=== PATIENT | male | born 1955 | race Caucasian/White ===

== ENCOUNTER 2016-09-14 06:54 | Emergency (ER) | payer SELFPAY ==
[2016-09-14] MEDS ORDERED: KETOROLAC TROMETHAMINE 60 MG/2 ML SDV IM ONE (07:51)
--- NOTE | 2016-09-14 07:58 | ER Document Report ---
HPI - HPI Pain Level: 5 Context: Patient with a h/o bipolar disorder comes to the office c/o LBP x1 weeks. Pt states that he does have chronic back pain usually. Denies any pain/numbness radiating to his LE's. Pt states that he has been out of his ativan and ambien that he was given by [facility] He does take depakote for his bipolar. Pt states that his anxiety has been elevated causing more issues controlling his back pain. He did take aleve which he states helps. Pt just wants something for the pain. He denies any acute injury, fever, CP, palp, syncope, sob, dyspnea, cough, abd pain, n/v/d, dysuria, hematuria, urinary retention, flank pain, loss of control of b/b, or rash. No smoking history. No family history of AAA. No h/o cardiac disease per patient. - ROS Notes: REVIEW OF SYSTEMS: CONSTITUTIONAL : Denies fever, chills, or sweats. Denies recent illness. EENT: Denies eye, ear, throat, or mouth pain or symptoms. Denies nasal or sinus congestion or discharge. Denies throat, tongue, or mouth swelling or difficulty swallowing. CARDIOVASCULAR: Denies chest pain. Denies palpitations or racing or irregular heart beat. Denies ankle edema. RESPIRATORY: Denies cough, cold, or chest congestion. Denies shortness of breath, difficulty breathing, or wheezing. GASTROINTESTINAL: Denies abdominal pain or distention. Denies nausea, vomiting , or diarrhea. Denies blood in vomitus, stools, or per rectum. Denies black, tarry stools. Denies constipation. GENITOURINARY: Denies difficulty urinating, painful urination, burning, frequency, blood in urine, or discharge. MUSCULOSKELETAL: see hpi. SKIN: Denies rash, lesions or sores. HEMATOLOGIC : Denies easy bruising or bleeding. LYMPHATIC: Denies swollen, enlarged glands. NEUROLOGICAL: Denies confusion or altered mental status. Denies passing out or loss of consciousness. Denies dizziness or lightheadedness. Denies headache. Denies weakness or paralysis or loss of use of either side. Denies problems with gait or speech. Denies sensory loss, numbness, or tingling. Denies seizures. PSYCHIATRIC: Denies anxiety or stress. Denies depression, suicidal ideation, or homicidal ideation. ALL OTHER SYSTEMS REVIEWED AND NEGATIVE. Dictation was performed using [employer] voice recognition software - DERM Skin Color: Normal Past Medical History - Social History Smoking Status: Never Smoker Family History: Reviewed & Not Pertinent Patient has suicidal ideation: No Patient has homicidal ideation: No Renal/ Medical History: Denies: Hx Peritoneal Dialysis Psychiatric Medical History: Reports: Hx Bipolar Disorder Vertical Provider Document - CONSTITUTIONAL Notes: PHYSICAL EXAMINATION: GENERAL: Well-appearing, well-nourished and in no acute distress. HEAD: Atraumatic, normocephalic. NECK: Normal range of motion, supple without lymphadenopathy LUNGS: Breath sounds clear to auscultation bilaterally and equal. No wheezes rales or rhonchi. HEART: Regular rate and rhythm without murmurs, rubs, gallops. ABDOMEN: Soft, nontender, nondistended abdomen. No guarding, no rebound. No masses appreciated. Normal bowel sounds present. No CVA tenderness bilaterally. Anal sphincter tone intact. Musculoskeletal: FROM to passive/active to back and LE's b/l, Strength 5+/5. + tenderness noted to the Paraspinal L2-3 R>L. Extremities: No cyanosis, clubbing, or edema b/l. Peripheral pulses 2+ and equal b/l. Capillary refill less than 3 seconds. NEUROLOGICAL: Cranial nerves grossly intact. Normal speech, normal gait. Normal sensory, motor exams. Reflexes to LE's b/l are 2+. PSYCH: Normal mood, anxious affect. SKIN: Warm, Dry, normal turgor, no rashes or lesions noted. - INFECTION CONTROL TRAVEL OUTSIDE OF THE [place] IN LAST 30 DAYS: No - RESPIRATORY O2 Sat by Pulse Oximetry: 98 Course - Re-evaluation Re-evalutation: Pt is a 61yo male who presents with acute on chronic back pain w/o any known injury. Vitals stable. PE unremarkable aside from mild rt paraspinal L-spine tenderness. No red flags on H&P. Toradol 60mg given IM today. Oxycodone 5mg given PO once today. L-spine XR negative. I will send him home with Naproxen 500mg PO BID prn pain. Recheck with PCM in 2-3 days. Consider ortho consult with ongoing/worsening symptoms. Needs recheck with PCM for elevated BP. After performing a Medical Screening Examination, I estimate there is LOW risk for EXPANDING OR RUPTURED ABDOMINAL AORTIC ANEURYSM, CAUDA EQUINA SYNDROME, EPIDURAL MASS LESION, or HERNIATED DISK CAUSING SEVERE SPINAL STENOSIS, thus I consider the discharge disposition reasonable. I have reevaluated this patient multiple times and no significant life threatening changes are noted. The patient and I have discussed the diagnosis and risks, and we agree with discharging home and close follow-up. We also discussed returning to the Emergency Department immediately if new or worsening symptoms occur with the understanding that symptoms and presentations can change. We have discussed the symptoms which are most concerning (e.g., saddle anesthesia, urinary or bowel incontinence or retention, changing or worsening pain) that necessitate immediate return. 09/14/16 09:12 - Vital Signs Vital signs: Temp Pulse Resp BP Pulse Ox 97.9 F 85 18 160/99 H 98 09/14/16 07:10 09/14/16 07:10 09/14/16 07:10 09/14/16 07:10 09/14/16 07:10 Discharge - Discharge Clinical Impression: Low back pain Qualifiers: Chronicity: chronic Back pain laterality: unspecified Sciatica presence: without sciatica Qualified Code(s): M54.5 - Low back pain Condition: Stable Disposition: HOME, SELF-CARE Instructions: Ice Packs ([facility]), Low Back Pain ([facility]), Warm Packs ([facility]) Additional Instructions: Rest, Ice, Compression, Elevation Tylenol/ibuprofen as needed Light stretches daily Strength exercises as able Moist heat and massage may help F/u with your PCP in 2-3 days for a recheck Consider consult(s) with Orthopedics for ongoing/worsening symptoms Return to the ED with any worsening pain, swelling, numbness/tingling, muscle weakness, or development of fever. Forms: Elevated Blood Pressure Referrals: [facility] [Provider Group] - Follow up as needed
--- NOTE | 2016-09-14 09:00 | RADIOLOGY REPORT (SQ) ---
EXAM DESCRIPTION: L SPINE WHOLE COMPLETED DATE/TIME: 09/14/2016 8:48 am REASON FOR STUDY: Low back pain COMPARISON: None. NUMBER OF VIEWS: Five views including obliques. TECHNIQUE: AP, lateral, oblique, and sacral radiographic images acquired of the lumbar spine. LIMITATIONS: None. FINDINGS: MINERALIZATION: Normal. SEGMENTATION: Normal. No transitional anatomy. ALIGNMENT: Normal. VERTEBRAE: Maintained height. No fracture or worrisome bone lesion. DISCS: Multilevel disc space narrowing with osteophytes. POSTERIOR ELEMENTS: Pedicles and facets are intact. No pars defect or posterior arch defects. Facet arthropathy is present. HARDWARE: None in the spine. PARASPINAL SOFT TISSUES: Normal. PELVIS: Intact as visualized. No fractures or worrisome bone lesions. SI joints intact. OTHER: No other significant finding. IMPRESSION: SPONDYLOSIS WITHOUT BONE LESION OR FRACTURE. TECHNICAL DOCUMENTATION: JOB ID: [id number] [employer]- All Rights Reserved
[2016-09-14] MEDS ORDERED: OXYCODONE HCL IR 5 MG TABLET PO ONE (09:11)
[2016-09-14 10:07] VITALS: BP 164/82
== END 2016-09-14 10:07 | disposition home or self-care (01) ==
LOC: ER 06:54
DX: M54.5 Low back pain (principal); G89.29 Other chronic pain; F31.9 Bipolar disorder, unspecified; I10 Essential (primary) hypertension; Z79.899 Other long term (current) drug therapy
CPT/HCPCS: 99283; 72110; J1885

== ENCOUNTER 2016-09-14 16:18 | Emergency (ER) | payer SELFPAY ==
--- NOTE | 2016-09-14 16:49 | ER Document Report ---
ED Medical Screen (RME) - General Chief Complaint: Psych Problem Stated Complaint: BACK PAIN Time Seen by Provider: 09/14/16 16:41 Notes: Patient is complaining of extreme pain in his lower lumbar back region that he says has been there off and on for the past week or so. He says he was seen here in this emergency department this morning and had x-rays and was discharged with N Sayed. That is not relieving his pain so he has returned. He says he wants to stay in the hospital. Says he is afraid he might shoot himself because he is in such pain. Patient has been on lorazepam and Ambien and ran out of both of them about a week ago and thinks that is part of the reason that he is having the severe pain. He has a history of bipolar disorder for which he is taking Depakote. No other significant medical history. TRAVEL OUTSIDE OF THE [place] IN LAST 30 DAYS: No - Related Data Allergies/Adverse Reactions: No Known Allergies Allergy (Verified 09/14/16 16:21) Past Medical History Renal/ Medical History: Denies: Hx Peritoneal Dialysis Psychiatric Medical History: Reports: Hx Bipolar Disorder Physical Exam - Vital signs Vitals: Temp Pulse Resp BP Pulse Ox 98.1 F 86 14 181/96 H 96 09/14/16 16:21 09/14/16 16:21 09/14/16 16:21 09/14/16 16:21 09/14/16 16:21 Course - Vital Signs Vital signs: Temp Pulse Resp BP Pulse Ox 98.1 F 86 14 181/96 H 96 09/14/16 16:21 09/14/16 16:21 09/14/16 16:21 09/14/16 16:21 09/14/16 16:21
[2016-09-14 17:13] LABS: ABSOLUTE BASOPHILS # (AUTO) 0.1 10^3/uL (0.0-0.2); ABSOLUTE LYMPHOCYTES (AUTO) 1.4 10^3/uL (0.5-4.7); ABSOLUTE MONOCYTES (AUTO) 0.9 10^3/uL (0.1-1.4); ABSOLUTE NEUT (AUTO) 7.2 10^3/uL (1.7-8.2); BASOPHILS % (AUTO) 0.6 % (0-2); EOSINOPHILS % (AUTO) 0.1 % (0-6); HEMATOCRIT 46.9 % (37.9-51.0); HEMOGLOBIN 15.6 g/dL (13.5-17.0); HGB HCT DIFFERENCE -0.1; LYMPHOCYTES % (AUTO) 14.4 % (13-45); MEAN CORPUSCULAR HEMOGLOBIN 30.7 pg (27.0-33.4); MEAN CORPUSCULAR HGB CONC 33.2 g/dL (32.0-36.0); MEAN CORPUSCULAR VOLUME 93 fl (80-97); MONOCYTES % (AUTO) 9.4 % (3-13); RED BLOOD COUNT 5.07 10^6/uL (4.35-5.55); RED CELL DISTRIBUTION WIDTH 13.7 % (11.5-14.0); SEGMENTED NEUTROPHILS % (AUTO) 75.5 % (42-78); WHITE BLOOD COUNT 9.6 10^3/uL (4.0-10.5)
[2016-09-14 17:32] LABS: ALANINE AMINOTRANSFERASE 19 U/L (21-72); ALBUMIN 4.4 g/dL (3.5-5.0); ALKALINE PHOSPHATASE 83 U/L (38-126); ANION GAP 15 (5-19); ASPARTATE AMINO TRANSFERASE 16 U/L (17-59); BILIRUBIN,DIRECT 0.6 mg/dL (0.0-0.4); BLOOD UREA NITROGEN 14 mg/dL (7-20); CALCIUM 9.8 mg/dL (8.4-10.2); CARBON DIOXIDE 26 mmol/L (22-30); CHLORIDE 100 mmol/L (98-107); CREATININE RESULT 0.74 mg/dL (0.52-1.25); GLUCOSE 101 mg/dL (75-110); SODIUM 141.2 mmol/L (137-145); TOTAL PROTEIN 7.8 g/dL (6.3-8.2)
[2016-09-14 17:33] LABS: ALCOHOL < 10 mg/dL (NONE DETECTED); POTASSIUM 4.7 mmol/L (3.6-5.0)
--- NOTE | 2016-09-14 18:44 | ER Document Report ---
ED General - General Mode of Arrival: Ambulatory Information source: Patient TRAVEL OUTSIDE OF THE [place] IN LAST 30 DAYS: No - HPI Onset: Other - Refer to HPI notes Similar symptoms previously: No Recently seen / treated by doctor: No <NIC LYNN - Last Filed: 09/14/16 20:47> <ONEALSARAH SARAH - Last Filed: 09/15/16 01:08> - General Chief Complaint: Psych Problem Stated Complaint: BACK PAIN Time Seen by Provider: 09/14/16 16:41 Notes: Patient is a 61 year old male presenting to the emergency department for back pain. Patient states he is out of his Ambien and Lorazepam and his physician will not prescribe him anymore. Patient is still getting the Depakote prescription. Patient has been out of these medications for 1-2 weeks. Patient was evaluated earlier in the emergency department for his back pain and given prescriptions for Naprosyn. Patient denies any suicidal or homicidal ideation and denies any plan to hurt himself. Patient also has a tremor which he states was onset this week has been getting worse over the last few days. (NIC LYNN) - Related Data Allergies/Adverse Reactions: No Known Allergies Allergy (Verified 09/14/16 16:21) Past Medical History - General Information source: Patient - Social History Smoking Status: Never Smoker Cigarette use (# per day): No Chew tobacco use (# tins/day): No Frequency of alcohol use: None Drug Abuse: None Family History: None Patient has suicidal ideation: Yes Patient has homicidal ideation: No Psychiatric Medical History: Reports: Hx Anxiety, Hx Bipolar Disorder, Hx Depression Surgical Hx: Negative <NIC LYNN - Last Filed: 09/14/16 20:47> Review of Systems - Review of Systems Constitutional: No symptoms reported EENT: No symptoms reported Cardiovascular: No symptoms reported Respiratory: No symptoms reported Gastrointestinal: No symptoms reported Genitourinary: No symptoms reported Male Genitourinary: No symptoms reported Musculoskeletal: See HPI Skin: No symptoms reported Hematologic/Lymphatic: No symptoms reported Neurological/Psychological: See HPI -: Yes All other systems reviewed and negative <NIC LYNN - Last Filed: 09/14/16 20:47> Physical Exam <NIC LYNN - Last Filed: 09/14/16 20:47> - Vital signs Interpretation: Normal - General General appearance: Appears well, Alert - HEENT Head: Normocephalic, Atraumatic Eyes: Normal Pupils: PERRL - Respiratory Respiratory status: No respiratory distress Chest status: Nontender Breath sounds: Normal Chest palpation: Normal - Cardiovascular Rhythm: Regular Heart sounds: Normal auscultation Murmur: No - Abdominal Inspection: Normal Distension: No distension Bowel sounds: Normal Tenderness: Nontender Organomegaly: No organomegaly - Back Back: Normal, Tender - paraspinal L1-5 b/l - Extremities General upper extremity: Normal inspection, Nontender, Normal color, Normal ROM , Normal temperature General lower extremity: Normal inspection, Nontender, Normal color, Normal ROM , Normal temperature, Normal weight bearing. No: Natty's sign - Neurological Neuro grossly intact: Yes Cognition: Normal Orientation: AAOx4 [place] Coma Scale Eye Opening: Spontaneous [place] Coma Scale Verbal: Oriented [place] Coma Scale Motor: Obeys Commands [place] Coma Scale Total: 15 Speech: Normal Motor strength normal: LUE, RUE, LLE, RLE Sensory: Normal Biceps - Reflex grade: 3 = Increased Triceps - Reflex grade: 3 = Increased Brachioradialis - Reflex grade: 3 = Increased Knee - Reflex grade: 3 = Increased Ankle - Reflex grade: 3 = Increased - Psychological Associated symptoms: Normal affect, Anxious - Skin Skin Temperature: Warm Skin Moisture: Dry Skin Color: Normal <SARAH NO - Last Filed: 09/15/16 01:08> - Vital signs Vitals: Temp Pulse Resp BP Pulse Ox 98.1 F 86 14 181/96 H 96 09/14/16 16:21 09/14/16 16:21 09/14/16 16:21 09/14/16 16:21 09/14/16 16:21 - Neurological Notes: tremulousness (SRAAH NO) Course - Laboratory Result Diagrams: 09/14/16 17:00 09/14/16 17:00 <NIC LYNN - Last Filed: 09/14/16 20:47> - Laboratory Result Diagrams: 09/14/16 17:00 09/14/16 17:00 <SARAH NO - Last Filed: 09/15/16 01:08> - Re-evaluation Re-evalutation: 09/14/16 22:24 Patient is a 61-year-old male who comes in complaining about back pain. Patient states that he was given medications for back pain in the past, as well as lorazepam and Ambien, but his doctor will not prescribe it anymore. Patient states that the back pain is making him very anxious and he states that he might hurt himself because of the pain. Patient states that he would not hurt himself and is not currently suicidal or homicidal. Of note, the patient is noted to have full body tremulousness. Patient states that this started about a week ago when he ran out of his lorazepam and it is gotten worse over the last 2 days. Patient is at risk for benzodiazepine withdrawal and potential seizures. Patient has been given a dose of Klonopin. He is feeling much better at this time. He is instructed to go to behavioral health services in [place] tomorrow to try to wean himself down on the Klonopin so that he does not have a seizure. Understands and agrees with plan. Stable for discharge. (SARAH NO) - Vital Signs Vital signs: Temp Pulse Resp BP Pulse Ox 97.7 F 77 20 161/81 H 98 09/14/16 22:00 09/14/16 22:00 09/14/16 22:00 09/14/16 22:00 09/14/16 22:00 - Laboratory Laboratory results interpreted by me: 09/14/16 17:00 Direct Bilirubin 0.6 H AST 16 L ALT 19 L Salicylates < 1.0 L Discharge <NIC LYNN - Last Filed: 09/14/16 20:47> <SARAH NO - Last Filed: 09/15/16 01:08> - Discharge Clinical Impression: Chronic back pain Qualifiers: Back pain location: low back pain Back pain laterality: bilateral Sciatica presence: without sciatica Qualified Code(s): M54.5 - Low back pain; G89.29 - Other chronic pain Benzodiazepine withdrawal Qualifiers: Complication of substance-induced condition: uncomplicated Qualified Code(s): F13.230 - Sedative, hypnotic or anxiolytic dependence with withdrawal, uncomplicated Condition: Stable Disposition: HOME, SELF-CARE Instructions: Benzodiazepines ([facility]), Low Back Pain ([facility]) Prescriptions: Clonazepam [Klonopin] 0.5 mg PO BIDP PRN #14 tablet PRN Reason: Cyclobenzaprine HCl [Flexeril 10 Mg Tablet] 10 mg PO BIDP PRN #20 tablet PRN Reason: Referrals: [facility] [Provider Group] - Follow up as needed [facility] [Provider Group] - Follow up as needed Scribe Attestation: 09/15/16 01:04 I personally performed the services described in the documentation, reviewed and edited the documentation which was dictated to the scribe in my presence, and it accurately records my words and actions. (SARAH NO) Scribe Documentation - Scribe Written by Scribe:: Mino Salgado, 09/14/16 20:55 acting as scribe for :: Oneal <NIC LYNN - Last Filed: 09/14/16 20:47>
[2016-09-14] MEDS ORDERED: CLONAZEPAM 1 MG TABLET PO ONE (19:03)
[2016-09-14 22:10] VITALS: BP 161/81
--- NOTE | 2016-09-16 00:15 | EKG REPORT ---
SEVERITY:- BORDERLINE ECG - SINUS RHYTHM VENTRICULAR PREMATURE COMPLEX BORDERLINE LEFT AXIS DEVIATION BORDERLINE PROLONGED QT INTERVAL : Confirmed by: Dhiraj Menendez 16-Sep-2016 00:13:52
== END 2016-09-14 22:03 | disposition home or self-care (01) ==
LOC: ER 16:18
DX: F13.230 Sedative, hypnotic or anxiolytic dependence with withdrawal, uncomplicated (principal); G25.2 Other specified forms of tremor; T42.4X5A Adverse effect of benzodiazepines, initial encounter; G89.29 Other chronic pain; M54.5 Low back pain; F41.9 Anxiety disorder, unspecified; F31.9 Bipolar disorder, unspecified; Z79.899 Other long term (current) drug therapy
CPT/HCPCS: 36415; 80053; 80164; 80307; 85025; 93005; 93010; 99284

== ENCOUNTER 2016-10-03 15:26 | Emergency (ER) | payer SELFPAY ==
[2016-10-03] MEDS ORDERED: NORMAL SALINE 1000 ML 1,000 ML IV PRN (16:14)
[2016-10-03 17:14] LABS: ABSOLUTE BASOPHILS # (AUTO) 0.1 10^3/uL (0.0-0.2); ABSOLUTE LYMPHOCYTES (AUTO) 1.3 10^3/uL (0.5-4.7); ABSOLUTE MONOCYTES (AUTO) 1.6 10^3/uL (0.1-1.4); ABSOLUTE NEUT (AUTO) 7.7 10^3/uL (1.7-8.2); BASOPHILS % (AUTO) 0.6 % (0-2); EOSINOPHILS % (AUTO) 0.2 % (0-6); HEMATOCRIT 44.3 % (37.9-51.0); HEMOGLOBIN 14.4 g/dL (13.5-17.0); HGB HCT DIFFERENCE -1.1; LYMPHOCYTES % (AUTO) 12.3 % (13-45); MEAN CORPUSCULAR HEMOGLOBIN 30.5 pg (27.0-33.4); MEAN CORPUSCULAR HGB CONC 32.5 g/dL (32.0-36.0); MEAN CORPUSCULAR VOLUME 94 fl (80-97); MONOCYTES % (AUTO) 14.9 % (3-13); RED BLOOD COUNT 4.74 10^6/uL (4.35-5.55); RED CELL DISTRIBUTION WIDTH 13.8 % (11.5-14.0); WHITE BLOOD COUNT 10.8 10^3/uL (4.0-10.5)
[2016-10-03 17:25] LABS: ANION GAP 15 (5-19); BLOOD UREA NITROGEN 24 mg/dL (7-20); CALCIUM 9.5 mg/dL (8.4-10.2); CARBON DIOXIDE 26 mmol/L (22-30); CHLORIDE 99 mmol/L (98-107); CREATININE RESULT 0.74 mg/dL (0.52-1.25); GLUCOSE 98 mg/dL (75-110); SODIUM 139.5 mmol/L (137-145)
[2016-10-03 17:30] LABS: VALPROIC ACID 89.9 ug/mL (50.0-120.0)
[2016-10-03 19:07] LABS: APPEARANCE,URINE CLEAR; BILIRUBIN,URINE NEGATIVE (NEGATIVE); GLUCOSE, URINE NEGATIVE (NEGATIVE); KETONES,URINE 80 mg/dL (NEGATIVE); LEUKOCYTE ESTERASE,URINE NEGATIVE (NEGATIVE); NITRITE,URINE NEGATIVE (NEGATIVE); PROTEIN,URINE 30 mg/dL (NEGATIVE); URINE SPECIFIC GRAVITY 1.026
[2016-10-03 19:29] LABS: URINE BARBITURATES SCREEN NEGATIVE; URINE METHADONE SCREEN NEGATIVE; URINE OPIATES LOW NEGATIVE; URINE PHENCYCLIDINE SCREEN NEGATIVE
--- NOTE | 2016-10-03 20:11 | ER Document Report ---
ED General - General Chief Complaint: Urinary Problem Stated Complaint: URINARY PROBLEM Time Seen by Provider: 10/03/16 15:36 TRAVEL OUTSIDE OF THE [place] IN LAST 30 DAYS: No - HPI Patient complains to provider of: Difficulty urinating Notes: Coming in for evaluation of difficulty urinating. Patient is unable to urinate this morning. Patient states has not been drinking or eating as he should. Patient otherwise states he had been taking medication as prescribed. Denies any fever chills nausea vomiting burning with urination. Denies any diarrhea - Related Data Allergies/Adverse Reactions: No Known Allergies Allergy (Verified 09/14/16 16:21) Past Medical History - Social History Smoking Status: Never Smoker Chew tobacco use (# tins/day): No Frequency of alcohol use: None Drug Abuse: None Family History: None Patient has suicidal ideation: No Patient has homicidal ideation: No Renal/ Medical History: Denies: Hx Peritoneal Dialysis Psychiatric Medical History: Reports: Hx Anxiety, Hx Bipolar Disorder, Hx Depression Review of Systems - Review of Systems Constitutional: No symptoms reported EENT: No symptoms reported Cardiovascular: No symptoms reported Respiratory: No symptoms reported Gastrointestinal: No symptoms reported Genitourinary: Retention Male Genitourinary: No symptoms reported Musculoskeletal: No symptoms reported Skin: No symptoms reported Hematologic/Lymphatic: No symptoms reported Neurological/Psychological: No symptoms reported -: Yes All other systems reviewed and negative Physical Exam - Vital signs Vitals: Temp Pulse BP Pulse Ox 98.1 F 99 168/88 H 100 10/03/16 15:41 10/03/16 15:41 10/03/16 15:41 10/03/16 15:41 Interpretation: Normal - General General appearance: Appears well, Alert - HEENT Head: Normocephalic, Atraumatic Eyes: Normal Pupils: PERRL - Respiratory Respiratory status: No respiratory distress Chest status: Nontender Breath sounds: Normal Chest palpation: Normal - Cardiovascular Rhythm: Regular Heart sounds: Normal auscultation Murmur: No - Abdominal Inspection: Normal Distension: No distension Bowel sounds: Normal Tenderness: Nontender Organomegaly: No organomegaly - Back Back: Normal, Nontender - Extremities General upper extremity: Normal inspection, Nontender, Normal color, Normal ROM , Normal temperature General lower extremity: Normal inspection, Nontender, Normal color, Normal ROM , Normal temperature, Normal weight bearing. No: Natty's sign - Neurological Neuro grossly intact: Yes Cognition: Normal Orientation: AAOx4 [place] Coma Scale Eye Opening: Spontaneous Margaret Coma Scale Verbal: Oriented Margaret Coma Scale Motor: Obeys Commands [place] Coma Scale Total: 15 Speech: Normal Motor strength normal: LUE, RUE, LLE, RLE Sensory: Normal - Psychological Associated symptoms: Normal affect, Normal mood - Skin Skin Temperature: Warm Skin Moisture: Dry Skin Color: Normal Course - Re-evaluation Re-evalutation: 10/03/16 20:10 Not reveal any critical pathology separately or dehydration. Patient was able tolerate a meal and p.o. meds here. Patient was able to also urinate on his own after a straight cath. Patient will be discharged home patient was encouraged to drink plenty of fluids - Vital Signs Vital signs: Temp Pulse Resp BP Pulse Ox 98.1 F 99 14 168/88 H 100 10/03/16 15:59 10/03/16 15:59 10/03/16 16:08 10/03/16 15:59 10/03/16 15:59 - Laboratory Result Diagrams: 10/03/16 16:50 10/03/16 16:50 Laboratory results interpreted by me: 10/03/16 10/03/16 10/03/16 16:50 16:50 18:35 WBC 10.8 H Lymphocytes % 12.3 L Monocytes % 14.9 H Absolute Monocytes 1.6 H BUN 24 H Urine Protein 30 H Urine Ketones 80 H Urine Blood SMALL H Urine Urobilinogen 2.0 H Discharge - Discharge Clinical Impression: Dehydration Condition: Good Disposition: HOME, SELF-CARE Instructions: Dehydration ([facility]) Additional Instructions: Please make sure that she drink plenty of water to stay hydrated.
[2016-10-03 20:18] VITALS: BP 162/89
== END 2016-10-03 20:17 | disposition home or self-care (01) ==
LOC: EEVIPCON 15:26 → ER 15:26
DX: E86.0 Dehydration (principal)
CPT/HCPCS: 99283; 96360; 36415; 85025; 80048; 81001; 80164; 80307; J7030

== ENCOUNTER 2016-10-04 16:17 | Emergency (ER) | payer SELFPAY ==
[2016-10-04] MEDS ORDERED: NORMAL SALINE 1000 ML 1,000 ML IV ONE (16:44)
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
[2016-10-04 17:24] LABS: ABSOLUTE EOSINOPHILS # (AUTO) 0.1 10^3/uL (0.0-0.6); ABSOLUTE LYMPHOCYTES (AUTO) 1.4 10^3/uL (0.5-4.7); ABSOLUTE MONOCYTES (AUTO) 1.2 10^3/uL (0.1-1.4); ABSOLUTE NEUT (AUTO) 5.3 10^3/uL (1.7-8.2); BASOPHILS % (AUTO) 0.6 % (0-2); EOSINOPHILS % (AUTO) 1.4 % (0-6); HEMATOCRIT 41.1 % (37.9-51.0); HEMOGLOBIN 13.4 g/dL (13.5-17.0); HGB HCT DIFFERENCE -0.9; LYMPHOCYTES % (AUTO) 17.2 % (13-45); MEAN CORPUSCULAR HEMOGLOBIN 30.3 pg (27.0-33.4); MEAN CORPUSCULAR HGB CONC 32.6 g/dL (32.0-36.0); MEAN CORPUSCULAR VOLUME 93 fl (80-97); MONOCYTES % (AUTO) 14.9 % (3-13); RED BLOOD COUNT 4.42 10^6/uL (4.35-5.55); RED CELL DISTRIBUTION WIDTH 14.2 % (11.5-14.0); SEGMENTED NEUTROPHILS % (AUTO) 65.9 % (42-78)
[2016-10-04 17:29] LABS: PROTHROMBIN TIME 13.1 SEC (11.4-15.4)
--- NOTE | 2016-10-04 17:42 | RADIOLOGY REPORT (SQ) ---
EXAM DESCRIPTION: CHEST SINGLE VIEW COMPLETED DATE/TIME: 10/04/2016 5:36 pm REASON FOR STUDY: altered mental status COMPARISON: None. EXAM PARAMETERS: NUMBER OF VIEWS: One view. TECHNIQUE: Single frontal radiographic view of the chest acquired. RADIATION DOSE: NA LIMITATIONS: None. FINDINGS: LUNGS AND PLEURA: No opacities, masses or pneumothorax. No pleural effusion. MEDIASTINUM AND HILAR STRUCTURES: No masses. Contour normal. HEART AND VASCULAR STRUCTURES: Heart normal in size. Normal vasculature. BONES: No acute findings. HARDWARE: None in the chest. OTHER: No other significant finding. IMPRESSION: NO ACUTE RADIOGRAPHIC FINDING IN THE CHEST. TECHNICAL DOCUMENTATION: JOB ID: [id number]
[2016-10-04 17:43] LABS: ALANINE AMINOTRANSFERASE 24 U/L (21-72); ALBUMIN 3.8 g/dL (3.5-5.0); ALKALINE PHOSPHATASE 58 U/L (38-126); ANION GAP 11 (5-19); ASPARTATE AMINO TRANSFERASE 49 U/L (17-59); BILIRUBIN,DIRECT 0.4 mg/dL (0.0-0.4); BLOOD UREA NITROGEN 18 mg/dL (7-20); CALCIUM 8.9 mg/dL (8.4-10.2); CARBON DIOXIDE 27 mmol/L (22-30); CHLORIDE 100 mmol/L (98-107); CREATININE RESULT 0.64 mg/dL (0.52-1.25); GLUCOSE 105 mg/dL (75-110); POTASSIUM 3.7 mmol/L (3.6-5.0); SODIUM 138.1 mmol/L (137-145); TOTAL PROTEIN 6.5 g/dL (6.3-8.2)
[2016-10-04 17:45] LABS: ALCOHOL < 10 mg/dL (NONE DETECTED)
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
[2016-10-04 18:32] LABS: VENOUS BLOOD BASE EXCESS 1.1 mmol/L; VENOUS BLOOD HCO3 25.5 mmol/L (20-32); VENOUS BLOOD PCO2 39.9 mmHg (35-63); VENOUS BLOOD PH 7.42 (7.30-7.42)
--- NOTE | 2016-10-04 19:49 | RADIOLOGY REPORT (SQ) ---
EXAM DESCRIPTION: CT HEAD WITHOUT COMPLETED DATE/TIME: 10/04/2016 7:34 pm REASON FOR STUDY: altered mental status COMPARISON: None. TECHNIQUE: Axial images acquired through the brain without intravenous contrast. Images reviewed wi th bone, brain and subdural windows. Images stored on PACS. All CT scanners at this facility use dose modulation, iterative reconstruction, and/or weight based d osing when appropriate to reduce radiation dose to as low as reasonably achievable (ALARA). [facility]: Dose Right [facility]: CareDose [facility]: Dose Right [facility]: Teradose 4D [facility]: Smart Sling Media RADIATION DOSE: Up-to-date CT equipment and radiation dose reduction techniques were employed. CTDIv ol: 64.6 mGy. DLP: 1163 mGy-cm. mGy. LIMITATIONS: None. FINDINGS: VENTRICLES: Normal size and contour. CEREBRUM: No masses. No hemorrhage. No midline shift. Normal jimenez/white matter differentiation. N o evidence for acute infarction. CEREBELLUM: No masses. No hemorrhage. No alteration of density. No evidence for acute infarction. EXTRAAXIAL SPACES: No fluid collections. No masses. ORBITS AND GLOBE: No intra- or extraconal masses. Normal contour of globe without masses. CALVARIUM: No fracture. PARANASAL SINUSES: No fluid or mucosal thickening. SOFT TISSUES: No mass or hematoma. OTHER: No other significant finding. IMPRESSION: NORMAL BRAIN CT WITHOUT CONTRAST. TECHNICAL DOCUMENTATION: JOB ID: [id number] Quality ID # [id number]: Final reports with documentation of one or more dose reduction techniques (e.g., Au tomated exposure control, adjustment of the mA and/or kV according to patient size, use of iterative reconstruction technique) 2010 [employer]- All Rights Reserved
[2016-10-04] MEDS ORDERED: LORAZEPAM INJ 2 MG/1 ML VIAL IM ONE ×2 (19:56→23:20)
[2016-10-04 20:20] LABS: APPEARANCE,URINE SLIGHTLY-CLOUDY; BILIRUBIN,URINE NEGATIVE (NEGATIVE); GLUCOSE, URINE NEGATIVE (NEGATIVE); KETONES,URINE 80 mg/dL (NEGATIVE); LEUKOCYTE ESTERASE,URINE NEGATIVE (NEGATIVE); NITRITE,URINE NEGATIVE (NEGATIVE); PROTEIN,URINE NEGATIVE (NEGATIVE); URINE SPECIFIC GRAVITY 1.021
[2016-10-04 20:33] LABS: URINE BARBITURATES SCREEN NEGATIVE; URINE METHADONE SCREEN NEGATIVE; URINE OPIATES LOW NEGATIVE; URINE PHENCYCLIDINE SCREEN NEGATIVE
[2016-10-04] MEDS ORDERED: NORMAL SALINE 1000 ML 1,000 ML IV PRN (21:32)
--- NOTE | 2016-10-04 22:20 | EKG REPORT ---
SEVERITY:- ABNORMAL ECG - SINUS RHYTHM VENTRICULAR PREMATURE COMPLEX BORDERLINE LEFT AXIS DEVIATION PROLONGED QT INTERVAL : Confirmed by: Dhiraj Menendez 04-Oct-2016 22:20:17
[2016-10-05] MEDS ORDERED: LORAZEPAM INJ 2 MG/1 ML VIAL IM ONE (00:56)
[2016-10-05 01:55] VITALS: BP 154/84
== END 2016-10-05 01:57 | disposition short-term general hospital (02) ==
LOC: ER 16:17
DX: R41.82 Altered mental status, unspecified (principal); R33.9 Retention of urine, unspecified; G89.29 Other chronic pain; M54.5 Low back pain; F31.9 Bipolar disorder, unspecified
CPT/HCPCS: 93005; 99285; 96372; 96360; 36415; 87040; 87086; 82962; 80307 ×4; 85025; 85652; 85610; 86140; 80053; 81001; 80164; 82803; 83605; 71010; 70450; 93010; J2060 ×2; J7030

== ENCOUNTER 2017-01-12 21:29 | Observation (INO) | payer SELFPAY ==
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
[2017-01-12 23:15] LABS: ALCOHOL < 10 mg/dL (NONE DETECTED); ANION GAP 11 (5-19); BLOOD UREA NITROGEN 15 mg/dL (7-20); CALCIUM 9.3 mg/dL (8.4-10.2); CARBON DIOXIDE 23 mmol/L (22-30); CHLORIDE 110 mmol/L (98-107); CREATININE RESULT 0.64 mg/dL (0.52-1.25); GLUCOSE 84 mg/dL (75-110); POTASSIUM 4.1 mmol/L (3.6-5.0); SODIUM 144.2 mmol/L (137-145)
[2017-01-12 23:30] LABS: ABSOLUTE BASOPHILS # (AUTO) 0.1 10^3/uL (0.0-0.2); ABSOLUTE EOSINOPHILS # (AUTO) 0.3 10^3/uL (0.0-0.6); ABSOLUTE LYMPHOCYTES (AUTO) 3.6 10^3/uL (0.5-4.7); ABSOLUTE NEUT (AUTO) 5.8 10^3/uL (1.7-8.2); BASOPHILS % (AUTO) 1.1 % (0-2); EOSINOPHILS % (AUTO) 2.4 % (0-6); HEMOGLOBIN 14.3 g/dL (13.5-17.0); HGB HCT DIFFERENCE -0.1; LYMPHOCYTES % (AUTO) 33.4 % (13-45); MEAN CORPUSCULAR HEMOGLOBIN 31.1 pg (27.0-33.4); MEAN CORPUSCULAR HGB CONC 33.2 g/dL (32.0-36.0); MEAN CORPUSCULAR VOLUME 94 fl (80-97); MONOCYTES % (AUTO) 9.5 % (3-13); RED BLOOD COUNT 4.59 10^6/uL (4.35-5.55); RED CELL DISTRIBUTION WIDTH 15.3 % (11.5-14.0); SEGMENTED NEUTROPHILS % (AUTO) 53.6 % (42-78); WHITE BLOOD COUNT 10.8 10^3/uL (4.0-10.5)
[2017-01-12 23:47] LABS: APPEARANCE,URINE CLEAR; BILIRUBIN,URINE NEGATIVE (NEGATIVE); GLUCOSE, URINE NEGATIVE (NEGATIVE); KETONES,URINE TRACE mg/dL (NEGATIVE); LEUKOCYTE ESTERASE,URINE NEGATIVE (NEGATIVE); NITRITE,URINE NEGATIVE (NEGATIVE); PROTEIN,URINE NEGATIVE (NEGATIVE); URINE SPECIFIC GRAVITY 1.024; UROBILINOGEN,URINE NEGATIVE mg/dL (<2.0)
[2017-01-13 00:08] LABS: URINE BARBITURATES SCREEN NEGATIVE; URINE METHADONE SCREEN NEGATIVE; URINE OPIATES LOW NEGATIVE; URINE PHENCYCLIDINE SCREEN NEGATIVE
--- NOTE | 2017-01-13 08:09 | EKG REPORT ---
SEVERITY:- ABNORMAL ECG - SINUS RHYTHM MULTIFORM VENTRICULAR PREMATURE COMPLEXES BORDERLINE LEFT AXIS DEVIATION : Confirmed by: Wild Hamilton MD 13-Jan-2017 08:09:10
--- NOTE | 2017-01-13 09:46 | ER Document Report ---
Doctor's Note Notes: 01/13/17 09:44 Patient has been seen and evaluated resting comfortably no acute distress. Laboratory values previous provider note and vital signs have been evaluated. Patient otherwise looks to be stable for disposition/transfer.
--- NOTE | 2017-01-13 10:11 | RADIOLOGY REPORT (SQ) ---
EXAM DESCRIPTION: CT HEAD WITHOUT COMPLETED DATE/TIME: 01/13/2017 10:01 am REASON FOR STUDY: ams COMPARISON: None. TECHNIQUE: Axial images acquired through the brain without intravenous contrast. Images reviewed wi th bone, brain and subdural windows. Images stored on PACS. All CT scanners at this facility use dose modulation, iterative reconstruction, and/or weight based d osing when appropriate to reduce radiation dose to as low as reasonably achievable (ALARA). [facility]: Dose Right [facility]: CareDose [facility]: Dose Right [facility]: Teradose 4D [facility]: Jajah RADIATION DOSE: Up-to-date CT equipment and radiation dose reduction techniques were employed. CTDIv ol: 64.6 mGy. DLP: 1292 mGy-cm. mGy. LIMITATIONS: None. FINDINGS: VENTRICLES: Normal size and contour. CEREBRUM: No masses. No hemorrhage. No midline shift. No evidence for acute infarction. Normal gra y/white matter differentiation. No areas of low density in the white matter. CEREBELLUM: No masses. No hemorrhage. No alteration of density. No evidence for acute infarction. EXTRAAXIAL SPACES: No fluid collections. No masses. ORBITS AND GLOBE: No intra- or extraconal masses. Normal contour of globe without masses. CALVARIUM: No fracture. PARANASAL SINUSES: No fluid or mucosal thickening. SOFT TISSUES: No mass or hematoma. OTHER: No other significant finding. IMPRESSION: NORMAL BRAIN CT WITHOUT CONTRAST. EVIDENCE OF ACUTE STROKE: NO. COMMENT: Quality ID # [id number]: Final reports with documentation of one or more dose reduction techniques (e.g., Automated exposure control, adjustment of the mA and/or kV according to patient size, use of iterative reconstruction technique) TECHNICAL DOCUMENTATION: JOB ID: [id number] [employer]- All Rights Reserved
[2017-01-13] MEDS ORDERED: DIVALPROEX SODIUM 500 MG TAB.SR.24H PO ONE (12:29)
[2017-01-13] MEDS ORDERED: LACTULOSE SYRUP 20 GM/30 ML UDCUP PO ONE (13:11)
[2017-01-13] MEDS ORDERED: ACETAMINOPHEN 325 MG TABLET PO PRN (15:09)
[2017-01-13 15:49] LABS: ADD ON TESTING BLD IN LAB ACKNOWLEDGE
[2017-01-13 16:31] LABS: ALANINE AMINOTRANSFERASE 13 U/L (21-72); ALBUMIN 4.1 g/dL (3.5-5.0); ALKALINE PHOSPHATASE 56 U/L (38-126); ASPARTATE AMINO TRANSFERASE 11 U/L (17-59); BILIRUBIN,DIRECT 0.4 mg/dL (0.0-0.4); BILIRUBIN,TOTAL 0.5 mg/dL (0.2-1.3); TOTAL PROTEIN 6.6 g/dL (6.3-8.2)
[2017-01-13 17:02] LABS: PROTHROMBIN TIME 13.3 SEC (11.4-15.4)
[2017-01-13] MEDS: LORAZEPAM 0.5 MG TABLET PO PRN (17:44)
--- NOTE | 2017-01-13 18:08 | PDOC H&P ---
History of Present Illness Admission Date/PCP: 01/13/17 13:52 Patient complains of: Fatigue, confusion, and depression History of Present Illness: ANA MARIA GRIGGS is a 61 year old male who presented to the ED via EMS for report of altered mental status. The patient was found driving erratically through a parking lot and pulled over by police academy instructor who then noted that the patient was not speaking clearly. He states that he remembers these events. He states that he took his Ambien at about 11pm approximately an hour later decided to try to get something to eat. He reports that he has been on his current dose of Ambien 10 mg nightly for several years and has not had difficulty in the past with sleep activity. He reports that he also took prescribed Ativan yesterday, however, states that he "took 1 or 2 more than I should have." He is additionally prescribed Depakote ER for his bipolar; he denies having taken additional doses of Depakote. He additionally denies EtOH or recreational drug use. He does report increased depression symptoms with anxiety related to being unemployed and not having health insurance. He describes having a poor social support system locally and is worried about becoming homeless. He is followed by a local psychiatrist and recently underwent ECT at [facility]. He reports that his depression improved initially following the treatments, however he has felt hopeless over the last several weeks. He denies SI, HI. Currently he continues to feel a sensation of "fogginess," and "confused easily. " He denies fever, chills, GOODWIN, dizziness, chest pain, dyspnea, abd pain, n/v/d. He does endorse an unintentional 40 lb wt loss over the last 2-3 months. Past Medical History Cardiac Medical History: Reports: None Pulmonary Medical History: Reports: None EENT Medical History: Reports: None Neurological Medical History: Reports: None Endocrine Medical History: Reports: None Renal/ Medical History: Reports: None Malignancy Medical History: Reports: None GI Medical History: Reports: None Denies: Hepatitis Musculoskeltal Medical History: Reports: None Skin Medical History: Reports: None Psychiatric Medical History: Reports: Bipolar Disorder, Depression, General Anxiety Disorder Denies: Alcohol Dependency, Substance Abuse, Tobacco Dependency Traumatic Medical History: Reports: None Hematology: Reports: None Infectious Medical History: Reports: None Past Surgical History Past Surgical History: Reports: None Social History Information Source: Patient Lives with: Alone Smoking Status: Never Smoker Frequency of Alcohol Use: None Hx Recreational Drug Use: No Hx Prescription Drug Abuse: No - Advance Directive Resuscitation Status: Full Code Family History Family History: None Parental Family History Reviewed: Yes - None significant Children Family History Reviewed: No Sibling(s) Family History Reviewed.: Unknown Medication/Allergy Home Medications: Divalproex Sodium [Depakote Er 500 Mg Tab.Sr] 500 mg PO Q12 #30 tab.sr.24h 02/24 Lorazepam [Ativan 1 mg Tablet] 1 mg PO Q8 01/13/17 Zolpidem Tartrate [Ambien] 10 mg PO QHS 01/13/17 Allergies/Adverse Reactions: No Known Allergies Allergy (Verified 01/12/17 21:43) Review of Systems All systems: reviewed and no additional remarkable complaints except as stated Constitutional: PRESENT: weight loss. ABSENT: chills, fever(s), headache(s), weight gain Eyes: ABSENT: visual disturbances Ears: ABSENT: hearing changes Cardiovascular: ABSENT: chest pain, dyspnea on exertion, edema, orthropnea, palpitations Respiratory: ABSENT: cough, hemoptysis Gastrointestinal: ABSENT: abdominal pain, constipation, diarrhea, hematemesis, hematochezia, nausea, vomiting Genitourinary: ABSENT: dysuria, hematuria Musculoskeletal: ABSENT: joint swelling Integumentary: ABSENT: rash, wounds Neurological: ABSENT: abnormal gait, abnormal speech, confusion, dizziness, focal weakness, syncope Psychiatric: PRESENT: as per HPI, anxiety, depression. ABSENT: homidical ideation, suicidal ideation Endocrine: ABSENT: cold intolerance, heat intolerance, polydipsia, polyuria Hematologic/Lymphatic: ABSENT: easy bleeding, easy bruising Physical Exam Vital Signs: Temp Pulse Resp BP Pulse Ox 98.1 F 62 16 157/92 H 99 01/13/17 16:15 01/13/17 16:15 01/13/17 16:15 01/13/17 16:15 01/13/17 16:15 General appearance: PRESENT: no acute distress, well-developed, well-nourished Head exam: PRESENT: atraumatic, normocephalic Eye exam: PRESENT: conjunctiva pink, EOMI, PERRLA. ABSENT: scleral icterus Ear exam: PRESENT: normal external ear exam Mouth exam: PRESENT: moist, tongue midline Neck exam: PRESENT: full ROM. ABSENT: carotid bruit, JVD, lymphadenopathy, tenderness, thyromegaly Respiratory exam: PRESENT: clear to auscultation agnieszka, symmetrical, unlabored. ABSENT: rales, rhonchi, wheezes Cardiovascular exam: PRESENT: RRR. ABSENT: diastolic murmur, rubs, systolic murmur Pulses: PRESENT: normal dorsalis pedis pul Vascular exam: PRESENT: normal capillary refill GI/Abdominal exam: PRESENT: normal bowel sounds, soft. ABSENT: distended, guarding, mass, organolmegaly, rebound, tenderness Rectal exam: PRESENT: deferred Extremities exam: PRESENT: full ROM. ABSENT: calf tenderness, clubbing, pedal edema Neurological exam: PRESENT: alert, awake, oriented to person, oriented to place , oriented to time, oriented to situation, CN II-XII grossly intact. ABSENT: motor sensory deficit Psychiatric exam: PRESENT: appropriate affect, depressed, flat affect. ABSENT: homicidal ideation, suicidal ideation Skin exam: PRESENT: dry, intact, warm. ABSENT: cyanosis, rash Results Laboratory Results: 01/13/17 01/13/17 15:38 16:35 Total Bilirubin 0.5 AST 11 L ALT 13 L Alkaline Phosphatase 56 Total Protein 6.6 Albumin 4.1 TSH 1.13 Impressions: Head CT 01/13/17 09:48 IMPRESSION: NORMAL BRAIN CT WITHOUT CONTRAST. EVIDENCE OF ACUTE STROKE: NO. Assessment & Plan - Diagnosis (1) Altered mental state Qualifiers: Altered mental status type: disorientation Qualified Code(s): R41.0 - Disorientation, unspecified Is this a current diagnosis for this admission?: Yes Plan: Patient with history of bipolar; prescribed depakote, ativan, and Ambien per psychiatry. He does admit to taking Ambien prior to driving/EMS response, as well as, ativan earlier in the day. AMS may be r/t side effect of ambien ( complex sleep-related behavior) and polypharmacy. Additionally, pts ammonia level is elevated, raising concern for hepatotoxicity r/t Depakote. 1- Obtain LFT, PT/INR; if normal, will continue Depakote as pt has had numerous other treatment failures 2- Hold Ambien 3- Reduced Ativan dosing (2) Increased ammonia level Plan: Likely r/t Depakote. Will hold until LFT panel resutls. 1- LFT, PT/INR 2- Will assess for hepatitis to r/o additional causes of hepatotoxicity 3- Lactulose q6 hrs (3) Depressed Qualifiers: Depression Type: major depressive disorder Major depression recurrence: recurrent Active/Remission status: currently active Major depression episode severity: moderate Qualified Code(s): F33.1 - Major depressive disorder, recurrent, moderate Is this a current diagnosis for this admission?: Yes Plan: Will continue Depakote for treatment resistant Bipolar w/ Depression once LFTs are available. 1- Consider adjunctive antidepressant therapy; choice limited 2/2 health insurance/cost 2- Consider psychiatric consultation 3- Appreciate Patient Navigator/Discharge Planning assistance (4) Benzodiazepine misuse Is this a current diagnosis for this admission?: Yes Plan: Pt prescribed ativan 1 mg q8 prn anxiety by outpatient psychiatry. Pt admits to frequently taking more than is prescribed. Will continue ativan, though at lower dose. 1- Ativan 0.5 mg po Q8 hr prn 2- Monitor for s/sx of withdrawal - Time Time Spent: 50 to 70 Minutes Medications reviewed and adjusted accordingly: Yes Anticipated discharge: Home
[2017-01-13] MEDS: FAMOTIDINE 20 MG TABLET PO SCH (21:10)
[2017-01-14 06:40] LABS: HEMOGLOBIN 14.4 g/dL (13.5-17.0); HGB HCT DIFFERENCE 0.2; MEAN CORPUSCULAR HEMOGLOBIN 31.1 pg (27.0-33.4); MEAN CORPUSCULAR HGB CONC 33.6 g/dL (32.0-36.0); MEAN CORPUSCULAR VOLUME 93 fl (80-97); RED BLOOD COUNT 4.64 10^6/uL (4.35-5.55); RED CELL DISTRIBUTION WIDTH 15.1 % (11.5-14.0); WHITE BLOOD COUNT 6.9 10^3/uL (4.0-10.5)
[2017-01-14 06:51] LABS: ANION GAP 13 (5-19); BLOOD UREA NITROGEN 12 mg/dL (7-20); CALCIUM 9.5 mg/dL (8.4-10.2); CARBON DIOXIDE 26 mmol/L (22-30); CHLORIDE 105 mmol/L (98-107); CREATININE RESULT 0.58 mg/dL (0.52-1.25); GLUCOSE 93 mg/dL (75-110); POTASSIUM 3.5 mmol/L (3.6-5.0); SODIUM 143.9 mmol/L (137-145)
[2017-01-14] MEDS ORDERED: BISACODYL 5 MG TABEC PO ONE (10:00)
[2017-01-14] MEDS: DIVALPROEX SODIUM 500 MG TAB.SR.24H PO SCH ×2 (10:10→22:27)
[2017-01-14] MEDS: DOCUSATE SODIUM 100 MG CAPSULE PO SCH (10:10)
[2017-01-14] MEDS: FAMOTIDINE 20 MG TABLET PO SCH ×2 (10:10→22:27)
[2017-01-14] MEDS: LORAZEPAM 0.5 MG TABLET PO PRN (10:13)
--- NOTE | 2017-01-14 14:24 | PDOC PROGRESS REPORT ---
Subjective Progress Note for:: 01/14/17 Subjective:: Patient is seen sitting up on the edge of his bed today. He is just met with a person from [facility] to assist with application to Medicaid for financial assistance. He dates that he is very appreciative of this help as he believes that much of his mental confusion is related to frustration, stress, anxiety regarding his financial situation. He asks to "meet with anybody you think can help me." He reports that he moved to the area a little over a year ago and in that time has spent close to $150,000 on "girls and booze." He states that he stopped drinking alcohol approximately 6 months ago when he recognized that he was quickly running out of money. He states that he is very anxious and depressed about his current situation as he anticipates becoming homeless within the next month. He does recognize that he may need to consider alternative living arrangements such as living with friends or family, group homes, or assisted living. He asks to speak with a social science teacher to discuss what options may be available to him. He does report continued confusion, stating that he feels easily overwhelmed by complex tasks. He states that he has noted that he has been having difficulty with finances (paying bills in addition to his exuberant spending) and has become lost while driving in town on at least 2 separate occasions. He states that he slept well last night, approximately 6 hours, despite having not received Ambien and being on lower dose Ativan. He denies psychomotor agitation, tremor, diaphoresis, nausea. Additionally, he complains of constipation today and requests a laxative. He reports that he frequently requires Dulcolax OTC at home. He denies abdominal pain, nausea, diarrhea. ROS as above and otherwise negative. Physical Exam Vital Signs: Temp Pulse Resp BP Pulse Ox 98.4 F 78 17 152/93 H 99 01/14/17 11:12 01/14/17 11:12 01/14/17 11:12 01/14/17 11:12 01/14/17 11:12 Intake & Output 01/13/17 01/14/17 01/15/17 06:59 06:59 06:59 Intake Total 245 Output Total 240 Balance 5 Weight 80.7 kg General appearance: PRESENT: no acute distress, thin, well-developed, well- nourished Head exam: PRESENT: atraumatic, normocephalic Eye exam: PRESENT: conjunctiva pink, EOMI, PERRLA. ABSENT: scleral icterus Ear exam: PRESENT: normal external ear exam Mouth exam: PRESENT: moist, tongue midline Neck exam: ABSENT: carotid bruit, JVD, lymphadenopathy, thyromegaly Respiratory exam: PRESENT: clear to auscultation agnieszka, symmetrical, unlabored. ABSENT: rales, rhonchi, wheezes Cardiovascular exam: PRESENT: RRR. ABSENT: diastolic murmur, rubs, systolic murmur Pulses: PRESENT: normal dorsalis pedis pul Vascular exam: PRESENT: normal capillary refill GI/Abdominal exam: PRESENT: normal bowel sounds, soft. ABSENT: distended, guarding, mass, organolmegaly, rebound, tenderness Rectal exam: PRESENT: deferred Extremities exam: PRESENT: full ROM. ABSENT: calf tenderness, clubbing, pedal edema Neurological exam: PRESENT: alert, awake, oriented to person, oriented to place , oriented to time, oriented to situation, CN II-XII grossly intact. ABSENT: motor sensory deficit Psychiatric exam: PRESENT: anxious, appropriate affect, depressed. ABSENT: homicidal ideation, suicidal ideation Focused psych exam: PRESENT: restlessness Skin exam: PRESENT: dry, intact, warm. ABSENT: cyanosis, rash Results Laboratory Results: 01/14/17 06:29 01/14/17 06:29 01/13/17 01/13/17 01/14/17 15:38 16:35 06:29 WBC 6.9 RBC 4.64 Hgb 14.4 Hct 43.0 MCV 93 MCH 31.1 MCHC 33.6 RDW 15.1 H Plt Count 196 Sodium Potassium Chloride Carbon Dioxide Anion Gap BUN Creatinine Est GFR ( Amer) Est GFR (Non-Af Amer) Glucose Calcium Total Bilirubin 0.5 AST 11 L ALT 13 L Alkaline Phosphatase 56 Total Protein 6.6 Albumin 4.1 TSH 1.13 01/14/17 06:29 WBC RBC Hgb Hct MCV MCH MCHC RDW Plt Count Sodium 143.9 Potassium 3.5 L Chloride 105 Carbon Dioxide 26 Anion Gap 13 BUN 12 Creatinine 0.58 Est GFR ( Amer) > 60 Est GFR (Non-Af Amer) > 60 Glucose 93 Calcium 9.5 Total Bilirubin AST ALT Alkaline Phosphatase Total Protein Albumin TSH Impressions: Head CT 01/13/17 09:48 IMPRESSION: NORMAL BRAIN CT WITHOUT CONTRAST. EVIDENCE OF ACUTE STROKE: NO. Assessment & Plan - Diagnosis (1) Altered mental state Qualifiers: Altered mental status type: disorientation Qualified Code(s): R41.0 - Disorientation, unspecified Is this a current diagnosis for this admission?: Yes Plan: Improved. Patient with history of bipolar; prescribed depakote, ativan, and Ambien per outpatient psychiatry. He does admit to taking Ambien prior to driving/EMS response, as well as, ativan earlier in the day. AMS may be r/t side effect of ambien (complex sleep-related behavior) and polypharmacy. I believe that his altered mental status is a combination of severe depression, his baseline bipolar disorder, polypharmacy, and especially Ambien use. His thoughts are more detailed and organized today. Despite his ammonia level being elevated, his remaining LFT panel was essentially normal and I am concerning. His hyperammonemia is likely a side effect of the Depakote and of itself does not necessitate discontinuing this medication as he has had multiple treatment failures and moderate success with Depakote use. 1- Resume Depakote 2- Hold Ambien; slept well overnight despite holding Ambien. 3- Reduced Ativan dosing (2) Increased ammonia level Plan: Likely r/t Depakote. Plan as above. 1- Will assess for hepatitis to r/o additional causes of hepatotoxicity; labs pending, unlikely given LFTs are not elevated. 2- Continue Lactulose q8 hrs (3) Depressed Qualifiers: Depression Type: major depressive disorder Major depression recurrence: recurrent Active/Remission status: currently active Major depression episode severity: moderate Qualified Code(s): F33.1 - Major depressive disorder, recurrent, moderate Is this a current diagnosis for this admission?: Yes Plan: Will continue Depakote for treatment resistant Bipolar w/ Depression. Remains on IVC papers. 1- Appreciate psychiatric consultation 2- Consider adjunctive antidepressant therapy; choice limited 2/2 health insurance/cost 3- Appreciate Patient Navigator/Discharge Planning assistance (4) Benzodiazepine misuse Is this a current diagnosis for this admission?: Yes Plan: Pt prescribed ativan 1 mg q8 prn anxiety by outpatient psychiatry. Pt admits to frequently taking more than is prescribed. Will continue ativan, though at lower dose. 1- Ativan 0.5 mg po Q8 hr prn 2- Monitor for s/sx of withdrawal (5) Hypertension Qualifiers: Hypertension type: unspecified Qualified Code(s): I10 - Essential (primary ) hypertension Is this a current diagnosis for this admission?: Yes Plan: May be r/t decreased BZO/potential withdrawal. No acute s/sx of withdrawal at present, will continue to monitor closely. 1- Will start on low dose Lisinopril - Time Time Spent with patient: 35 or more minutes Medications reviewed and adjusted accordingly: Yes
[2017-01-14] MEDS: LACTULOSE SYRUP 20 GM/30 ML UDCUP PO SCH (22:27)
[2017-01-15] MEDS: LACTULOSE SYRUP 20 GM/30 ML UDCUP PO SCH (05:16)
[2017-01-15] MEDS ORDERED: LISINOPRIL 5 MG TABLET PO SCH (10:00)
[2017-01-15] MEDS: DIVALPROEX SODIUM 500 MG TAB.SR.24H PO SCH (10:27)
[2017-01-15] MEDS: FAMOTIDINE 20 MG TABLET PO SCH (10:27)
[2017-01-15] MEDS: DOCUSATE SODIUM 100 MG CAPSULE PO SCH (10:29)
--- NOTE | 2017-01-15 11:15 | PSYCHOLOGICAL NOTE ---
Psych Note - Psych Note Psych Note: Attending emergency department physician Dr. Monge informed behavior health team clinician Raisa Brush that psychiatric evaluation was not necessary and will be canceled. Dr. Monge rescinded patient's IVC paperwork on 2016.
[2017-01-15 12:23] VITALS: BP 124/76
--- NOTE | 2017-01-15 12:30 | PDOC DISCHARGE SUMMARY ---
General - Admit/Disc Date/PCP Admission Date/Primary Care Provider: 01/13/17 15:09 Discharge Date: 01/15/17 - Discharge Diagnosis (1) Altered mental state Is this a current diagnosis for this admission?: Yes (2) Depressed Is this a current diagnosis for this admission?: Yes Summary: Pt described symptoms of depression; difficulty sleeping, poor appetite, feelings of hopelessness. He states that he feels this may be contributing to his recent confusion. Pt with long standing, treatment resistent, Bipolar. Currently on Depakote. Has previously had ECT x 2 with some improvements in sx. Discussed importance of psychiatry follow up after discharge. (3) Benzodiazepine misuse Is this a current diagnosis for this admission?: Yes Summary: Pt reported that he regularly takes 2-3 times the prescribed dose of Ativan. Discussed this as a contributing factor to his mental cloudiness. Discussed risk of accidental overdose. Pt advised to discontinue ativan use after discharge. While inpatient, he was provided low dose ativan prn and did not demonstrate s/ sx of withdrawal. Recommend close follow up with psychiatry and/or substance abuse counselling. (4) Hypertension Is this a current diagnosis for this admission?: Yes Summary: Pt noted to have BP averaging 150/90s, was started on low dose lisinopril with noted improvements to 120/70. Will d/c on lisinopril. (5) Increased ammonia level Is this a current diagnosis for this admission?: Yes Summary: Likely r/t Depakote and of itself does not necessitate discontinuing this medication as he has had multiple treatment failures and moderate success with Depakote. Remaining LFT panel is essentially normal, Hepatitis panel is negative. Pt started on lactulose and will be discharged w/ prescription and recommendation for close follow up with both psychiatry and primary care to monitor liver function. - Additional Information Resuscitation Status: Full Code Discharge Diet: Regular Discharge Activity: Activity As Tolerated Home Medications: Divalproex Sodium [Depakote ER 500 mg Tab.sr] 500 mg PO Q12 #30 tab.sr.24h 02/24 Lactulose [Cephulac Syrup 20 gm/30 ml Udcup] 20 gm PO Q8 #90 udc 01/15/17 Lisinopril [Prinivil 5 mg Tablet] 5 mg PO DAILY #30 tablet 01/15/17 History of Present Illness History of Present Illness: ANA MARIA GRIGGS is a 61 year old male who presented to the ED via EMS for report of altered mental status. The patient was found driving erratically through a parking lot and pulled over by police captain senior who then noted that the patient was not speaking clearly. He states that he remembers these events. He states that he took his Ambien at about 11pm approximately an hour later decided to try to get something to eat. He reports that he has been on his current dose of Ambien 10 mg nightly for several years and has not had difficulty in the past with sleep activity. He reports that he also took prescribed Ativan yesterday, however, states that he "took 1 or 2 more than I should have." He is additionally prescribed Depakote ER for his bipolar; he denies having taken additional doses of Depakote. He additionally denies EtOH or recreational drug use. He does report increased depression symptoms with anxiety related to being unemployed and not having health insurance. He describes having a poor social support system locally and is worried about becoming homeless. He is followed by a local psychiatrist and recently underwent ECT at [facility]. He reports that his depression improved initially following the treatments, however he has felt hopeless over the last several weeks. He denies SI, HI. Currently he continues to feel a sensation of "fogginess," and "confused easily. " He denies fever, chills, GOODWIN, dizziness, chest pain, dyspnea, abd pain, n/v/d. He does endorse an unintentional 40 lb wt loss over the last 2-3 months. Hospital Course Hospital Course: Pt admitted for evaluation of altered mental status which quickly improved with discontinuation of Ambien and reduction of Ativan. Liver function and hepatitis panel were reassuring, hyperammonemia determined to be a likely side effect of Depakote. Given pt's severity of Bipolar and Depression, it was determined that the patient would benefit from continued depakote. Psychiatry was consulted briefly and it was determined that he no longer met IVC criteria and was stable for d/c to home. Discharge planning met with patient and brother on multiple occasions to provide area resources for primary care, psychiatric care, as well as, to describe requirements for medicaid, half-way, and assisted living placement. Physical Exam Vital Signs: Temp Pulse Resp BP Pulse Ox 97.5 F 82 17 123/73 97 01/15/17 07:36 10/12/17 07:36 01/15/17 07:36 01/15/17 07:36 01/15/17 07:36 Intake & Output 01/14/17 01/15/17 01/16/17 06:59 06:59 06:59 Intake Total 245 890 Output Total 240 Balance 5 890 Weight 80.7 kg 81.2 kg General appearance: PRESENT: no acute distress, thin, well-developed, well- nourished Head exam: PRESENT: atraumatic, normocephalic Eye exam: PRESENT: conjunctiva pink, EOMI, PERRLA. ABSENT: scleral icterus Ear exam: PRESENT: normal external ear exam Mouth exam: PRESENT: moist, tongue midline Neck exam: ABSENT: carotid bruit, JVD, lymphadenopathy, thyromegaly Respiratory exam: PRESENT: clear to auscultation agnieszka, symmetrical, unlabored. ABSENT: rales, rhonchi, wheezes Cardiovascular exam: PRESENT: RRR. ABSENT: diastolic murmur, rubs, systolic murmur Pulses: PRESENT: normal dorsalis pedis pul Vascular exam: PRESENT: normal capillary refill GI/Abdominal exam: PRESENT: normal bowel sounds, soft. ABSENT: distended, guarding, mass, organolmegaly, rebound, tenderness Rectal exam: PRESENT: deferred Extremities exam: PRESENT: full ROM. ABSENT: calf tenderness, clubbing, pedal edema Neurological exam: PRESENT: alert, awake, oriented to person, oriented to place , oriented to time, oriented to situation, CN II-XII grossly intact. ABSENT: motor sensory deficit Psychiatric exam: PRESENT: appropriate affect, normal mood. ABSENT: homicidal ideation, suicidal ideation Skin exam: PRESENT: dry, intact, warm. ABSENT: cyanosis, rash Results Laboratory Results: 01/14/17 06:29 01/14/17 06:29 Impressions: Head CT 01/13/17 09:48 IMPRESSION: NORMAL BRAIN CT WITHOUT CONTRAST. EVIDENCE OF ACUTE STROKE: NO. Qualifiers PATEINT BEING DISCHARGED WITH ANY OF THE FOLLOWING DIAGNOSIS?: No
[2017-01-17 15:27] LABS: CARNITINE ESTERIFIED/FREE 0.3 Ratio (0.0-0.9); CARNITINE FREE 32 umol/L (20-55)
== END 2017-01-15 13:05 | disposition home or self-care (01) ==
LOC: ER 21:29 → EH 01-13 13:52 → UNDOADMOB 01-13 13:52 → EH 01-13 15:09 → 4W 01-13 16:44 → EH 01-13 16:44 → 4W 01-13 17:35
PROVIDERS: ADMIT Internal Medicine; ATTEND Internal Medicine
DX: R41.0 Disorientation, unspecified (principal); F33.1 Major depressive disorder, recurrent, moderate; F19.90 Other psychoactive substance use, unspecified, uncomplicated; I10 Essential (primary) hypertension; E72.20 Disorder of urea cycle metabolism, unspecified; F41.8 Other specified anxiety disorders; R63.4 Abnormal weight loss; K59.00 Constipation, unspecified; Z56.0 Unemployment, unspecified; Z79.899 Other long term (current) drug therapy
CPT/HCPCS: 93005; 99285; 82379; 36415 ×3; 80307 ×2; 82140; 84443; 85025; 85027; 85610; 80076; 80048 ×2; 81001; 80164; 80074; 70450; 93010; G0378 ×4; J3490 ×3

== ENCOUNTER 2017-06-23 09:39 | Emergency (ER) | payer SELFPAY ==
[2017-06-23] MEDS ORDERED: DIVALPROEX SODIUM 500 MG TAB.SR.24H PO ONE (10:18)
--- NOTE | 2017-06-23 10:19 | ER Document Report ---
ED General - General Chief Complaint: Tremor Stated Complaint: ALTERED Time Seen by Provider: 06/23/17 09:48 Notes: 62-year-old male, history of bipolar. On Depakote. Ativan. Has not taken his meds in a week. Went to get his meds today and was feeling a little bit of weakness and tremulousness. Was advised that he needed to come to the ER and get checked out. Patient denies any suicidal ideation. No hallucinations. States it has been 1 week since he took his Depakote. Requesting Depakote at this time. TRAVEL OUTSIDE OF THE U.S. IN LAST 30 DAYS: No - HPI Onset: Last week Onset/Duration: Gradual - Related Data Allergies/Adverse Reactions: No Known Allergies Allergy (Verified 06/23/17 09:56) Past Medical History - General Information source: Patient - Social History Smoking Status: Smoker,Current Status Unk Cigarette use (# per day): No Frequency of alcohol use: None Drug Abuse: None Lives with: Alone Family History: None Renal/ Medical History: Denies: Hx Peritoneal Dialysis GI Medical History: Denies: Hx Hepatitis Psychiatric Medical History: Reports: Hx Anxiety, Hx Bipolar Disorder, Hx Depression Infectious Medical History: Denies: Hx Hepatitis Review of Systems - Review of Systems Constitutional: Weight loss. denies: Malaise, Weakness EENT: denies: Blurred vision, Throat pain, Difficulty swallowing, Mouth pain Cardiovascular: denies: Chest pain, Palpitations, Heart racing, Dyspnea Respiratory: denies: Cough, Short of breath, Wheezing Gastrointestinal: denies: Abdominal pain, Diarrhea, Nausea, Vomiting Genitourinary: denies: Burning, Dysuria, Discharge Musculoskeletal: denies: Back pain, Gout, Joint pain, Muscle pain Skin: denies: Dryness, Lesions, Lumps, Rash Hematologic/Lymphatic: denies: Anemia, Blood clots, Easy bleeding, Easy bruising Neurological/Psychological: Depression. denies: Confusion, Dementia, Weakness, Paralysis, Seizure, Speech impairment, Numbness Physical Exam - Vital signs Vitals: Temp Pulse Resp BP Pulse Ox 97.5 F 49 L 16 159/77 H 96 06/23/17 09:44 06/23/17 09:44 06/23/17 09:44 06/23/17 09:44 06/23/17 09:44 Interpretation: Bradycardic - General General appearance: Appears well, Alert, Other - Flat affect. Slowed to speak but is appropriate when speaking. - HEENT Head: Normocephalic, Atraumatic Eyes: Normal Pupils: PERRL - Respiratory Respiratory status: No respiratory distress Chest status: Nontender Breath sounds: Normal Chest palpation: Normal - Cardiovascular Rhythm: Bradycardia Heart sounds: Normal auscultation Murmur: No Notes: Frequent PVCs - Abdominal Inspection: Normal Distension: No distension Bowel sounds: Normal Tenderness: Nontender Organomegaly: No organomegaly - Back Back: Normal, Nontender - Extremities General upper extremity: Normal inspection, Nontender, Normal color, Normal ROM , Normal temperature General lower extremity: Normal inspection, Nontender, Normal color, Normal ROM , Normal temperature, Normal weight bearing. No: Natty's sign - Neurological Neuro grossly intact: Yes Cognition: Normal Orientation: AAOx4 [place] Coma Scale Eye Opening: Spontaneous Margaret Coma Scale Verbal: Oriented Margaret Coma Scale Motor: Obeys Commands Margaret Coma Scale Total: 15 Speech: Normal Motor strength normal: LUE, RUE, LLE, RLE Sensory: Normal - Psychological Associated symptoms: Normal affect, Normal mood - Skin Skin Temperature: Warm Skin Moisture: Dry Skin Color: Normal Course - Re-evaluation Re-evalutation: 06/23/17 11:44 Otherwise well-appearing male in no acute distress. Has some chronic bipolar depression. Previous notes showed that he does have quite a flat affect which is what I am seeing at this time. Answering all questions appropriately. States that he has a place to live at this time and is currently in the process of going back to live in [place] with his brother. 06/23/17 12:18 Rubs fairly unremarkable. Not homicidal. Not suicidal. Clear train of thought. Comfortable at this time discharging after he gets his dose of Depakote. 06/23/17 13:12 Laboratory 06/23/17 06/23/17 06/23/17 10:55 10:55 12:20 WBC 7.3 RBC 4.68 Hgb 14.4 Hct 43.4 MCV 93 MCH 30.8 MCHC 33.3 RDW 14.8 H Plt Count 204 Seg Neutrophils % 65.5 Lymphocytes % 23.0 Monocytes % 10.1 Eosinophils % 0.6 Basophils % 0.8 Absolute Neutrophils 4.8 Absolute Lymphocytes 1.7 Absolute Monocytes 0.7 Absolute Eosinophils 0.0 Absolute Basophils 0.1 Sodium 139.5 Potassium 4.3 Chloride 103 Carbon Dioxide 26 Anion Gap 11 BUN 11 Creatinine 0.55 Est GFR ( Amer) > 60 Est GFR (Non-Af Amer) > 60 Glucose 114 H Calcium 9.6 Total Bilirubin 0.4 Direct Bilirubin 0.4 Neonat Total Bilirubin Not Reportable Neonat Direct Bilirubin Not Reportable Neonat Indirect Bili Not Reportable AST 13 L ALT 20 L Alkaline Phosphatase 53 Ammonia Total Protein 6.7 Albumin 4.0 Urine Color DANDRE Urine Appearance SLIGHTLY-CLOUDY Urine pH 5.0 Ur Specific [place] 1.026 Urine Protein 30 H Urine Glucose (UA) NEGATIVE Urine Ketones 20 H Urine Blood NEGATIVE Urine Nitrite NEGATIVE Urine Bilirubin MODERATE H Urine Urobilinogen 2.0 H Ur Leukocyte Esterase NEGATIVE Urine WBC (Auto) 3 Urine RBC (Auto) 9 U Hyaline Cast (Auto) 1 Squamous Epi Cells Auto <1 Urine Mucus (Auto) MANY Urine Ascorbic Acid 20 H Valproic Acid < 10.0 L 06/23/17 12:35 WBC RBC Hgb Hct MCV MCH MCHC RDW Plt Count Seg Neutrophils % Lymphocytes % Monocytes % Eosinophils % Basophils % Absolute Neutrophils Absolute Lymphocytes Absolute Monocytes Absolute Eosinophils Absolute Basophils Sodium Potassium Chloride Carbon Dioxide Anion Gap BUN Creatinine Est GFR ( Amer) Est GFR (Non-Af Amer) Glucose Calcium Total Bilirubin Direct Bilirubin Neonat Total Bilirubin Neonat Direct Bilirubin Neonat Indirect Bili AST ALT Alkaline Phosphatase Ammonia 11.0 Total Protein Albumin Urine Color Urine Appearance Urine pH Ur Specific [place] Urine Protein Urine Glucose (UA) Urine Ketones Urine Blood Urine Nitrite Urine Bilirubin Urine Urobilinogen Ur Leukocyte Esterase Urine WBC (Auto) Urine RBC (Auto) U Hyaline Cast (Auto) Squamous Epi Cells Auto Urine Mucus (Auto) Urine Ascorbic Acid Valproic Acid - Vital Signs Vital signs: Temp Pulse Resp BP Pulse Ox 98.7 F 50 L 16 160/77 H 97 06/23/17 13:19 06/23/17 13:19 06/23/17 13:19 06/23/17 13:19 06/23/17 13:19 - Laboratory Result Diagrams: 06/23/17 10:55 06/23/17 10:55 Laboratory results interpreted by me: 06/23/17 06/23/17 06/23/17 10:55 10:55 12:20 RDW 14.8 H Glucose 114 H AST 13 L ALT 20 L Urine Protein 30 H Urine Ketones 20 H Urine Bilirubin MODERATE H Urine Urobilinogen 2.0 H Urine Ascorbic Acid 20 H Valproic Acid < 10.0 L - EKG Interpretation by Me EKG shows normal: [place], Intervals, QRS Complexes, ST-T Waves Rate: Bradycardia Additional EKG results interpreted by me: 06/23/17 11:45 Sinus bradycardia with frequent PVCs Discharge - Discharge Clinical Impression: Bipolar 1 disorder, depressed, Sinus bradycardia Condition: Good Disposition: HOME, SELF-CARE Instructions: Depression ([facility]) Additional Instructions: It is very important that you take your medications on a regular basis. Please begin your medications as instructed. An initial dose of Depakote was given to you in the emergency department so do not take your Depakote today. Began your regular medication dosing tomorrow.
[2017-06-23 11:06] LABS: ABSOLUTE BASOPHILS # (AUTO) 0.1 10^3/uL (0.0-0.2); ABSOLUTE LYMPHOCYTES (AUTO) 1.7 10^3/uL (0.5-4.7); ABSOLUTE MONOCYTES (AUTO) 0.7 10^3/uL (0.1-1.4); ABSOLUTE NEUT (AUTO) 4.8 10^3/uL (1.7-8.2); BASOPHILS % (AUTO) 0.8 % (0-2); EOSINOPHILS % (AUTO) 0.6 % (0-6); HEMATOCRIT 43.4 % (37.9-51.0); HEMOGLOBIN 14.4 g/dL (13.5-17.0); MEAN CORPUSCULAR HEMOGLOBIN 30.8 pg (27.0-33.4); MEAN CORPUSCULAR HGB CONC 33.3 g/dL (32.0-36.0); MEAN CORPUSCULAR VOLUME 93 fl (80-97); MONOCYTES % (AUTO) 10.1 % (3-13); PLATELET COUNT 204 10^3/uL (150-450); RED BLOOD COUNT 4.68 10^6/uL (4.35-5.55); RED CELL DISTRIBUTION WIDTH 14.8 % (11.5-14.0); SEGMENTED NEUTROPHILS % (AUTO) 65.5 % (42-78); TOTAL CELLS COUNTED % (AUTO) 100 %; WHITE BLOOD COUNT 7.3 10^3/uL (4.0-10.5)
[2017-06-23 11:22] LABS: ALANINE AMINOTRANSFERASE 20 U/L (21-72); ALKALINE PHOSPHATASE 53 U/L (38-126); ANION GAP 11 (5-19); ASPARTATE AMINO TRANSFERASE 13 U/L (17-59); BILIRUBIN,DIRECT 0.4 mg/dL (0.0-0.4); BILIRUBIN,TOTAL 0.4 mg/dL (0.2-1.3); BLOOD UREA NITROGEN 11 mg/dL (7-20); CALCIUM 9.6 mg/dL (8.4-10.2); CARBON DIOXIDE 26 mmol/L (22-30); CHLORIDE 103 mmol/L (98-107); GLUCOSE 114 mg/dL (75-110); POTASSIUM 4.3 mmol/L (3.6-5.0); SODIUM 139.5 mmol/L (137-145); TOTAL PROTEIN 6.7 g/dL (6.3-8.2)
[2017-06-23 12:47] LABS: APPEARANCE,URINE SLIGHTLY-CLOUDY; BILIRUBIN,URINE MODERATE (NEGATIVE); COLOR,URINE AMBER; GLUCOSE, URINE NEGATIVE (NEGATIVE); KETONES,URINE 20 mg/dL (NEGATIVE); LEUKOCYTE ESTERASE,URINE NEGATIVE (NEGATIVE); NITRITE,URINE NEGATIVE (NEGATIVE); PROTEIN,URINE 30 mg/dL (NEGATIVE); URINE SPECIFIC GRAVITY 1.026
[2017-06-23 13:20] VITALS: BP 160/77
--- NOTE | 2017-06-23 15:47 | EKG REPORT ---
SEVERITY:- OTHERWISE NORMAL ECG - SINUS BRADYCARDIA VENTRICULAR PREMATURE COMPLEX : Confirmed by: Dhiraj Menendez 23-Jun-2017 15:47:19
== END 2017-06-23 13:28 | disposition home or self-care (01) ==
LOC: ER 09:39
DX: F31.9 Bipolar disorder, unspecified (principal); T42.6X6A Underdosing of other antiepileptic and sedative-hypnotic drugs, initial encounter; Z91.14 Patient's other noncompliance with medication regimen; I49.3 Ventricular premature depolarization; R63.4 Abnormal weight loss; Z68.21 Body mass index [BMI] 21.0-21.9, adult
CPT/HCPCS: 36415; 80053; 80164; 81001; 82140; 85025; 93005; 93010; 99285

== ENCOUNTER 2017-07-14 10:46 | Emergency (ER) | payer SELFPAY ==
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
--- NOTE | 2017-07-14 12:18 | RADIOLOGY REPORT (SQ) ---
EXAM DESCRIPTION: CHEST 2 VIEWS COMPLETED DATE/TIME: 07/14/2017 11:46 am REASON FOR STUDY: chest pain COMPARISON: Chest films 10/20/2009 EXAM PARAMETERS: NUMBER OF VIEWS: two views TECHNIQUE: Digital Frontal and Lateral radiographic views of the chest acquired. RADIATION DOSE: NA LIMITATIONS: none FINDINGS: LUNGS AND PLEURA: No opacities, masses or pneumothorax. No pleural effusion. MEDIASTINUM AND HILAR STRUCTURES: No masses or contour abnormalities. HEART AND VASCULAR STRUCTURES: Heart normal size. No evidence for failure. BONES: No acute findings. HARDWARE: None in the chest. OTHER: No other significant finding. IMPRESSION: NO ACUTE RADIOGRAPHIC FINDING IN THE CHEST. TECHNICAL DOCUMENTATION: JOB ID: [id number] LK [employer]- All Rights Reserved Reading location - IP/workstation name: [email or web address]
[2017-07-14 12:38] LABS: ALANINE AMINOTRANSFERASE 14 U/L (21-72); ALBUMIN 4.8 g/dL (3.5-5.0); ALKALINE PHOSPHATASE 52 U/L (38-126); ANION GAP 19 (5-19); ASPARTATE AMINO TRANSFERASE 19 U/L (17-59); BILIRUBIN,DIRECT 0.6 mg/dL (0.0-0.4); BILIRUBIN,TOTAL 0.8 mg/dL (0.2-1.3); BLOOD UREA NITROGEN 17 mg/dL (7-20); CALCIUM 10.3 mg/dL (8.4-10.2); CARBON DIOXIDE 28 mmol/L (22-30); CHLORIDE 97 mmol/L (98-107); CREATINE KINASE 106 U/L (55-170); GLUCOSE 100 mg/dL (75-110); POTASSIUM 4.3 mmol/L (3.6-5.0); SODIUM 144.1 mmol/L (137-145); TOTAL PROTEIN 7.8 g/dL (6.3-8.2)
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
[2017-07-14 12:49] LABS: CREATINE KINASE MB 1.58 ng/mL (<4.55)
[2017-07-14 12:50] LABS: TROPONIN I < 0.012 ng/mL
--- NOTE | 2017-07-14 12:56 | EKG REPORT ---
SEVERITY:- ABNORMAL ECG - SINUS RHYTHM. VENTRICULAR PREMATURE COMPLEX BORDERLINE LEFT AXIS DEVIATION BORDERLINE PROLONGED QT INTERVAL : Confirmed by: Wild Hamilton MD 14-Jul-2017 12:55:50
[2017-07-14 13:45] LABS: ACETAMINOPHEN < 10 ug/mL (10-30); ALCOHOL < 10 mg/dL (NONE DETECTED); SALICYLATE < 1.0 mg/dL (2.0-20.0)
[2017-07-14 14:25] LABS: ABSOLUTE BASOPHILS # (AUTO) 0.1 10^3/uL (0.0-0.2); ABSOLUTE LYMPHOCYTES (AUTO) 1.5 10^3/uL (0.5-4.7); ABSOLUTE MONOCYTES (AUTO) 0.9 10^3/uL (0.1-1.4); ABSOLUTE NEUT (AUTO) 4.5 10^3/uL (1.7-8.2); BASOPHILS % (AUTO) 0.8 % (0-2); EOSINOPHILS % (AUTO) 0.1 % (0-6); HEMOGLOBIN 14.9 g/dL (13.5-17.0); LYMPHOCYTES % (AUTO) 21.8 % (13-45); MEAN CORPUSCULAR HEMOGLOBIN 30.5 pg (27.0-33.4); MEAN CORPUSCULAR VOLUME 92 fl (80-97); MONOCYTES % (AUTO) 12.8 % (3-13); PLATELET COUNT 173 10^3/uL (150-450); RED BLOOD COUNT 4.88 10^6/uL (4.35-5.55); RED CELL DISTRIBUTION WIDTH 15.1 % (11.5-14.0); SEGMENTED NEUTROPHILS % (AUTO) 64.5 % (42-78); TOTAL CELLS COUNTED % (AUTO) 100 %
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
== END 2017-07-14 16:20 | disposition home or self-care (01) ==
LOC: ER 10:46
DX: F41.9 Anxiety disorder, unspecified (principal); F22 Delusional disorders; F32.9 Major depressive disorder, single episode, unspecified; R07.9 Chest pain, unspecified
CPT/HCPCS: 36415; 71046; 80053; 80307; 82140; 82550; 82553; 83735; 84484; 85025; 93005; 93010; 99285